=== PATIENT | male | born 1990 | race Caucasian/White ===

== ENCOUNTER 2023-12-30 12:53 | Emergency (ER) | payer OTHER, SELFPAY ==
[2023-12-30 13:01] VITALS: BP 139/71
[2023-12-30] MEDS: VALIUM 5 MG PO (13:57)
[2023-12-30] MEDS: DELTASONE 50 MG PO (13:57)
[2023-12-30] MEDS: TORADOL 30 MG IM (13:57)
--- NOTE | 2023-12-30 14:27 | ED.GENMED ---
History of Present Illness
General
Chief Complaint: Back Pain
Source: patient
Exam Limitations: none
Time Seen by Provider: 12/30/23 13:31
Nursing documentation reviewed up to this point in time: agreed with
Travel History
Have you had any contact with someone who has COVID-19?: No
Do you have any symptoms of coronavirus? Fever > 100 degrees, chills, cough, shortness of breath, sore throat, loss of taste or smell, muscle aches, or headache?: No
History of Present Illness
History of Present Illness:
33-year-old male with past medical history of chronic back discomfort presenting to the emergency department today with concerns of 5 days of low back discomfort with radiation mainly to the right thigh. Denies any numbness weakness, bowel or
bladder dysfunction. Denies any fevers recent infection, chest pain shortness of breath abdominal pain.
Review of Systems
Review of Systems
Allergies reviewed?: Yes
All Other Systems: ROS reviewed and negative except as documented in HPI and ROS
Phy Exam
Physical Exam
Physical Exam:
GENERAL: Alert , in no apparent distress
EYE: pupils equal and reactive
NECK: Supple, no significant adenopathy.
ENT: o/p clr, mmm.
CARDIAC: Regular rate and rhythm .
LUNGS: Clear breath sounds bilaterally, no acute respiratory distress, no wheezes/rales/rhonchi
ABDOMEN: Soft, without focal tenderness, no r/g, no cvat
NEUROLOGICAL: Alert and oriented, no focal neuro deficits
SKIN: Warm and dry, skin intact. 5-5 out of 5 lower extremity strength normal sensation were palpated bilaterally
MUSCULOSKELETAL: No edema, well perfused.
PSYCH: Normal and appropriate interaction.
Course
Orders/Labs/Results
Orders:
Orders
12/30/23 13:48
Diazepam [Valium] 5 mg PO NOW STA
Ketorolac [Toradol] 30 mg IM NOW STA
Prednisone [Deltasone] 50 mg PO NOW STA
Vital Signs
Initial and Last Documented VS:
Initial Vital Signs
Temp Pulse Resp BP Pulse Ox
99.4 F 85 16 139/71 98
12/30/23 13:01 12/30/23 13:01 12/30/23 13:01 12/30/23 13:01 12/30/23 13:01
Last Documented Vital Signs
Temp Pulse Resp BP Pulse Ox
99.4 F 85 16 139/71 98
12/30/23 13:01 12/30/23 13:01 12/30/23 13:01 12/30/23 13:01 12/30/23 13:01
MDM/Problems Addressed
MDM/Problems Addressed:
33-year-old male presenting to the emergency department today with concerns of back discomfort mainly to the right side rating down the right thigh. No red flag symptoms no signs consistent with cauda equina or spinal epidural abscess normal
neurologic evaluation. Vital signs are normal upon arrival here. Patient generally well-appearing symptoms are specifically positional, seems to be consistent with mechanical back pain. Plan for symptomatic treatment and reassessment. Patient
with improving symptoms after treatment. No red flag symptoms stable for outpatient management. Given information for follow-up. Return precautions given.
*Critical Care Note
Total Time (30-74mins, 75-104mins- exclusive of procedures): Not Applicable
ED Attending Note
-
Portions of this chart may have been created with voice recognition software.� Occasional wrong word or��sound alike� substitutions may have occurred due to the inherent limitations of voice recognition software.
Discharge Plan
Departure
Patient Disposition: Home (Routine Discharge)
Date of Disposition: 12/30/23
Time of Disposition: 16:14
Patient with high blood pressure during this ER visit?: No
Condition: Good
Covid-19: Not Applicable
Discharge Problem:
Back pain
Instructions: Low Back Pain (DC)
Prescriptions:
New
cyclobenzaprine 10 mg tablet
10 mg PO HS PRN (Reason: muscle spasm) Qty: 7 0RF
prednisone 20 mg tablet
40 mg PO DAILY 4 Days Qty: 8 0RF
Referrals:
Kishan Nowak MD [Active] - Follow up in 5-7 days
Candace Lind PA-C [Family Provider] -
Activity Restrictions/Additional Instructions:
You came to the emergency department today with concerns of back discomfort. Please take medications as prescribed and follow-up closely with the back doctor. Return to the emergency department for any worsening, new or concerning symptoms.
Interventions
Interventions:
*Risk Screen - Suicide Last Done: 12/30/23 13:04
*General Assessment Last Done: 12/30/23 13:04
*Neglect/Abuse Screening Last Done: 12/30/23 13:04
ED-Musculoskeletal Assessment Last Done: 12/30/23 14:06
== END 2023-12-30 16:39 | disposition home or self-care (01) ==
LOC: EMR 12:53
PROVIDERS: EMERGENCY PHYSICIAN Emergency Medicine; FAMILY PHYSICIAN Physician Assistant Medical
DX: M54.9 Dorsalgia, unspecified (principal)
CPT/HCPCS: 99284; 96372

== ENCOUNTER → 2024-01-21 17:54 | Outpatient (REF) | payer OTHER, SELFPAY | LOC: PAVMRI 17:54 | PROVIDERS: ATTENDING PHYSICIAN Physician Assistant Medical; FAMILY PHYSICIAN Physician Assistant Medical | DX: M54.50 Low back pain, unspecified (principal); M51.26 Other intervertebral disc displacement, lumbar region | CPT/HCPCS: 72148 ==

== ENCOUNTER 2024-03-29 13:55 | Outpatient (RCR) | payer OTHER, SELFPAY | END 2024-03-29 23:59 | disposition home or self-care (01) | LOC: RPT 13:55 | PROVIDERS: ATTENDING PHYSICIAN Physician Assistant Medical; FAMILY PHYSICIAN Physician Assistant Medical | DX: M54.16 Radiculopathy, lumbar region (principal); Z73.6 Limitation of activities due to disability | CPT/HCPCS: 97010; 97110; 97162; 97530 ==

== ENCOUNTER 2024-04-05 13:09 | Outpatient (RCR) | payer OTHER, SELFPAY | END 2024-04-05 23:59 | disposition home or self-care (01) | LOC: RPT 13:09 | PROVIDERS: ATTENDING PHYSICIAN Physician Assistant Medical; FAMILY PHYSICIAN Physician Assistant Medical | DX: M54.16 Radiculopathy, lumbar region (principal); Z73.6 Limitation of activities due to disability | CPT/HCPCS: 97010; 97110 ==

== ENCOUNTER → 2025-06-12 11:37 | Outpatient (REF) | payer OTHER, SELFPAY | LOC: PAVMRI 11:37 | PROVIDERS: ATTENDING PHYSICIAN Physician Assistant Surgical; FAMILY PHYSICIAN Physician Assistant Medical | DX: M51.26 Other intervertebral disc displacement, lumbar region (principal); M54.16 Radiculopathy, lumbar region; M54.59 Other low back pain | CPT/HCPCS: 72148 ==

== ENCOUNTER → 2025-10-24 07:53 | Outpatient (REF) | payer OTHER, SELFPAY | LOC: HWRAD 07:53 | PROVIDERS: ATTENDING PHYSICIAN Physician Assistant Medical | DX: E03.9 Hypothyroidism, unspecified (principal) | CPT/HCPCS: 76536 ==